=== PATIENT | female | born 1955 | race Caucasian/White ===

== ENCOUNTER 2022-07-18 15:08 | Inpatient (IN) | payer OTHER ==
[~2022-07-18] VITALS: Ht 167.6 cm; Wt 91.6 kg
--- NOTE | 2022-07-18 15:20 | NUR ---
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 PT STATES THAT SHE HAS HX OF COPD AND SMOKES WELL. ATTACHED TO MONITOR. RESPIRATORY AT BEDSIDE. AWAITING MD CASTILLO.
[2022-07-18] MEDS ORDERED: FUROSEMIDE 40 MG/4 ML VIAL IV ONE (15:30)
--- NOTE | 2022-07-18 15:35 | NUR ---
called nrusing sup regarding pt bed
[2022-07-18] MEDS ORDERED: FUROSEMIDE 40 MG/4 ML VIAL ONE (15:38)
[2022-07-18] MEDS ORDERED: methylPREDNISolone SOD SUCC 125 MG/2ML VIAL ONE (15:38)
--- NOTE | 2022-07-18 15:48 | NUR ---
IV ESTABLISHED R HAND 20G. LABS DRAWN AND COLLECTED AT BEDSIDE.
--- NOTE | 2022-07-18 15:50 | NUR ---
RORY TEST COLLETED AND SENT
[2022-07-18] MEDS: NTG 50 MG/D5W250 ML BOTTL 250 ML IV PRN ×3 (15:53→20:45)
--- NOTE | 2022-07-18 15:55 | NUR ---
BIPAP SETTINGS IPAP: 10 RATE; 8 I-TIME: 1.00 RISE: 3 EPAP: 5 O2: 28
[2022-07-18 15:59] LABS: BASOPHILS % (AUTO) 0.6 % (0.0-2.0); EOSINOPHILS % (AUTO) 1.8 % (0.0-6.0); HEMATOCRIT 40 % (33-45); HEMOGLOBIN 13.6 g/dL (11.5-14.8); LYMPHOCYTES # (AUTO) 1.8 K/uL (0.8-4.8); LYMPHOCYTES % (AUTO) 29.1 % (20.0-44.0); MEAN CORPUSCULAR HGB CONC 34 g/dl (31.0-36.0); MEAN CORPUSCULAR VOLUME 89 fL (82-100); MONOCYTES # (AUTO) 0.5 K/uL (0.1-1.30); MONOCYTES % (AUTO) 8.2 % (2.0-12.0); NEUTROPHILS # (AUTO) 3.8 K/uL (1.8-8.9); NEUTROPHILS % (AUTO) 60.3 % (43.0-81.0); PLATELET COUNT (AUTO) 197 K/uL (150-450); RED BLOOD CELL COUNT(AUTO) 4.48 MIL/uL (4.0-5.2); WHITE BLOOD COUNT (AUTO) 6.3 K/uL (4.3-11.0)
[2022-07-18] MEDS ORDERED: IPRATROPIUM NEB FS 0.5 MG/2.5 ML AMPUL.NEB NEB ONE (16:00)
[2022-07-18] MEDS ORDERED: methylPREDNISolone SOD SUCC 125 MG/2ML VIAL IV ONE (16:00)
[2022-07-18] MEDS ORDERED: ALBUTEROL FS 2.5 MG/3 ML VIAL.NEB CONTNEB ONE (16:00)
[2022-07-18 16:09] LABS: CALCIUM, SERUM 9.8 mg/dL (8.5-10.1); CARBON DIOXIDE 28 mmol/L (21-32); CHLORIDE 104 mmol/L (98-107); CREATININE 0.8 mg/dL (0.6-1.3); GLUCOSE 99 mg/dL (74-106); POTASSIUM 3.6 mmol/L (3.5-5.1); SODIUM SERUM 137 mmol/L (136-145); UREA NITROGEN, BLOOD 16 mg/dL (7-18)
[2022-07-18] MEDS ORDERED: [UNRECOGNIZED DRUG - REMARK] PO (16:11)
[2022-07-18] MEDS ORDERED: ALBU8.5H8 IH (16:11)
[2022-07-18] MEDS ORDERED: MULT-447 PO (16:11)
[2022-07-18] MEDS ORDERED: DIPH180L13 PO (16:11)
[2022-07-18] MEDS ORDERED: [UNRECOGNIZED DRUG - REMARK] PO (16:11)
[2022-07-18] MEDS ORDERED: BISM262O64 PO (16:11)
[2022-07-18] MEDS ORDERED: IPRATROPIUM NEB FS 0.5 MG/2.5 ML AMPUL.NEB ONE (16:12)
[2022-07-18] MEDS ORDERED: ALBUTEROL FS 2.5 MG/3 ML VIAL.NEB ONE (16:12)
[2022-07-18] MEDS ORDERED: DILT180T PO (16:17)
[2022-07-18] MEDS ORDERED: ATOR10TA PO (16:17)
[2022-07-18 16:29] LABS: ALANINE AMINOTRANSFERASE 19 U/L (12-78); ALBUMIN 3.4 g/dL (3.4-5.0); ALKALINE PHOSPHATASE 87 U/L (46-116); ASPARTATE AMINOTRANSFERASE 14 U/L (15-37); BILIRUBIN,DIRECT 0.1 mg/dL (0.0-0.2); BILIRUBIN,TOTAL 0.6 mg/dL (0.2-1.0); TOTAL PROTEIN, SERUM 7.1 g/dL (6.4-8.2)
--- NOTE | 2022-07-18 16:35 | NUR ---
PT IS AWAKE AND FOLLOW COMMANDS PLACED INTO BIPAP WITH PARAMETERS BELOW ORDER: IPAP 10 EPAP 5 RR 8 FIO2 28% BREATH SOUNDS CLEAR BILATERAL. SPO2 98% RR 18 BPM NO INCREASE WOB NOTED Addendum: 07/18/22 at 1640 by DAVE GUEVARA RT Amended: Links added.
[2022-07-18 16:55] LABS: ABG BASE EXCESS 2.4 mmol/L; ABG PCO2 36.2 mmHg (35.0-45.0); ABG PH 7.471 (7.350-7.450); ABG PO2 112.2 mmHg (75.0-100.0); MetHb 0.4 % (0.0-1.5); O2Hb 95.9 % (94.0-97.0); SITE, ABG Right Radial; VENT MODE, BG nasal cannula
--- NOTE | 2022-07-18 16:59 | NUR ---
Filiberto li in [facility] - 07/18/22 at 1759 by JEANA BED GIVEN 252
--- NOTE | 2022-07-18 18:52 | NUR ---
BED GIVEN 252 AT CHANGE OF SHIFT
--- NOTE | 2022-07-18 19:25 | NUR ---
RECEIVED REPORT FROM RICHELLE STOUT. PATIENT CAME EARLIER W CC OF SOB, CPX1 WEEK. RECEIVED PT ON NITRO DRIP FOR ELEVATED BP. INITIAL VS CHECKED. BP 180/78, HR 74, RR 20, SATS 94% ON NC WITH ONGOING NITRO DRIP AT 10MCG/MIN. PT IS AAOX4, SITTING COMFORTABLY. WITH IV LEN ON LEFT HAND G18 AND IV LEN ON RIGHT HAND G20. -CP AND -SOB DURING ASSESSMENT. WILL CONTINUE TO MONITOR.
--- NOTE | 2022-07-18 19:45 | NUR ---
INCREASED THE NITRO DRIP TO 15MCG/MIN AT 1930. BP FROM 180/78 WENT DOWN TO 167/73. HR 81, SATS 95, RR 20 AT 2LPM NC
--- NOTE | 2022-07-18 20:45 | NUR ---
DECREASED RATE OF NITRO TO 10MCG/MIN. BP 86/66, HR 81BPM, RR 20, SATS 94%
[2022-07-18] MEDS ORDERED: hydrALAZINE HCL IV 20 MG VIAL ONE (21:32)
--- NOTE | 2022-07-18 21:45 | NUR ---
DR HANDY SPOKE TO DR GUSTAFSON AND ADELE LEYVA. HE ORDERED TO D/C NITRO DRIP. CN D/C'D NITRO BP 170/86mmHg
--- NOTE | 2022-07-18 22:23 | NUR ---
TRIED TO GIVE REPORT, ICU STAFF STILL BUSY WITH ANOTHER PATIENT. ASKING TO GIVE REPORT LATER
--- NOTE | 2022-07-18 23:29 | NUR ---
REPORT GIVEN TO RICHELLE GUTHRIE
--- NOTE | 2022-07-18 23:52 | NUR ---
TRANSFERRED PT TO ICU VIA ACLS PROTOCOL
[2022-07-19] VITALS (9 sets, daily range): BP systolic 108–181; BP diastolic 68–100
[2022-07-19] MEDS ORDERED: CLONIDINE HCL 0.1 MG TABLET PO PRN (00:30)
[2022-07-19] MEDS ORDERED: ONDANSETRON HCL/PF 4 MG/2 ML VIAL IV PRN (00:30)
[2022-07-19] MEDS ORDERED: ACETAMINOPHEN 325 MG TABLET PO PRN (00:30)
[2022-07-19] MEDS ORDERED: hydrALAZINE HCL IV 20 MG VIAL IV PRN (00:30)
[2022-07-19] MEDS ORDERED: DILTIAZEM HCL CD 240 MG PO SCH (00:58)
[2022-07-19] MEDS ORDERED: MORPHINE SULFATE INJ 2 MG/ML DISP.SYRIN IV PRN (01:00)
[2022-07-19] MEDS ORDERED: MORPHINE SULFATE INJ 4 MG/ML DISP.SYRIN IV PRN (01:00)
--- NOTE | 2022-07-19 01:53 | NUR ---
RADIOLOGIC TECH. NEW ADMISSION . RECEIVED THE PT FROM ER VIA [facility], DIAGNOSED WITH HYPERTENSION. PT AWAKE,ALERT FOLLOW COMMANDS. RN [facility] SHOWING NSR, IV RT AND LT HAND 20G. HOB ELEVATED. OXYGEN 2L VIA NASAL CANNULA. SAT 98%. NO ACUTE DISTRESS NOTED, WILL CONTINUE TO MONITOR VITALS
--- NOTE | 2022-07-19 04:35 | NUR ---
ACADEMIC DEPARTMENT CHAIR. AM CARE GIVEN, REMAINING SAME OXYGEN TOLERATED WELL. SAT 98%. NO ACUTE DISTRESS NOTED. GLASS BLOCK BENDER SHOWING NSR, IV RT AND LT HAND SALINE LOCK,HOB ELEVATED, WILL CONTINUE TO MONITOR VITALS.
[2022-07-19 04:48] LABS: BASOPHILS % (AUTO) 0.3 % (0.0-2.0); HEMATOCRIT 42 % (33-45); LYMPHOCYTES # (AUTO) 0.8 K/uL (0.8-4.8); LYMPHOCYTES % (AUTO) 11.3 % (20.0-44.0); MEAN CORPUSCULAR HGB CONC 34 g/dl (31.0-36.0); MEAN CORPUSCULAR VOLUME 90 fL (82-100); MONOCYTES # (AUTO) 0.1 K/uL (0.1-1.30); MONOCYTES % (AUTO) 1.1 % (2.0-12.0); NEUTROPHILS # (AUTO) 5.9 K/uL (1.8-8.9); NEUTROPHILS % (AUTO) 87.3 % (43.0-81.0); PLATELET COUNT (AUTO) 216 K/uL (150-450); RED BLOOD CELL COUNT(AUTO) 4.65 MIL/uL (4.0-5.2); WHITE BLOOD COUNT (AUTO) 6.8 K/uL (4.3-11.0)
[2022-07-19 04:59] LABS: CALCIUM, SERUM 10.3 mg/dL (8.5-10.1); CREATININE 1.2 mg/dL (0.6-1.3); POTASSIUM 3.5 mmol/L (3.5-5.1)
[2022-07-19 05:22] LABS: THYROID STIMULATING HORMONE 0.318 uIU/mL (0.358-3.74)
--- NOTE | 2022-07-19 07:00 | NUR ---
ORDER TAKERS SUPERVISOR Bedside report taken from [facility] nurse Lilian RN. 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 charge nurse talking to pt and informing that pt needs to stay in room and not allowed to walk around hallway. pt ambulating and pacing around hallway non compliant, pt awake, alert and oriented x4 steady gait. pt on room air, tolerating well. no signs of respiratory distress at this time. unknown vitals because pt refuses to be touched, refuses to have icu monitors on. charge nurse Mariluz RN and [facility] charge nurse Janel RN at bedside talking to pt. pt refusing all care, stating she is hungry, kitchen called and tray requested stat. Jon at nursing station aware of situation.
--- NOTE | 2022-07-19 07:15 | NUR ---
SMALL BUSINESS CONSULTANT Pt demanding to use bathroom, bedside commode at bedside offered for safety , pt refused demanding to use bathroom, pt escorted to bathroom by charge nurse Mariluz PEOPLES. safety measures in place. pt stable.
--- NOTE | 2022-07-19 07:40 | NUR ---
ALIGNING INSPECTOR Pt stating that she wants to leave ama, ama explained to her, pt demanded form. form printed and given to pt, pt took for to room to read over. pt places form on desk unsigned, refusing to sign form and takes all belongings and exits ICU. Nursing supervisor metal furniture fabrication Mel RN called and informed of events, ok per mel, Dr Cuellar messaged and aware pt left ama. charge nurse Mariluz aware. pt awake, alert and oriented. no signs of respiratory or any other distress, stable gait.
--- NOTE | 2022-07-19 07:55 | NUR ---
AIR BRAKE TESTER pt in subacute, RN to subacute to escort pt to exit, and ask pt if theres anything pt needs, pt refusing all care, refusing escort to lobby. talking to staff in Sub acute. pt aware that nursing supervisor post wave Mel PEOPLES aware. pt has all belongings, stable and all ivs removed prior to leaving ICU.
[2022-07-19] MEDS ORDERED: HYDROCHLOROTHIAZIDE 25 MG TABLET PO SCH (09:00)
[2022-07-19] MEDS ORDERED: ENOXAPARIN SODIUM 40 MG/0.4 ML DISP.SYRIN SQ SCH (09:00)
[2022-07-19] MEDS ORDERED: LOSARTAN POTASSIUM 50 MG TABLET PO SCH ×2 (09:00)
== END 2022-07-19 08:16 | disposition left against medical advice (07) | DRG 191 ==
LOC: ER 15:10 → ICU 19:52
PROVIDERS: ADMIT Internal Medicine; ATTEND Internal Medicine
PROC: 5A09357 Assistance with Respiratory Ventilation, Less than 24 Consecutive Hours, Continuous Positive Airway Pressure (ICD-10-PCS; principal; 2022-07-18)
DX: J44.1 Chronic obstructive pulmonary disease with (acute) exacerbation (principal); I16.1 Hypertensive emergency; I10 Essential (primary) hypertension; Z79.51 Long term (current) use of inhaled steroids; Z53.29 Procedure and treatment not carried out because of patient's decision for other reasons; Z20.822 Contact with and (suspected) exposure to COVID-19; Z79.899 Other long term (current) drug therapy
CPT/HCPCS: 36415; 36600; 71045-TC; 80048-TC; 80061-TC; 80076-TC; 83880; 84439-TC; 84443-TC; 84484-TC; 85025-TC; 85730-TC; 87081-TC; A4223; C9803; G0378; J0360; J1940; J2930; J3490